=== PATIENT | female | born 2000 | race Caucasian/White ===

== ENCOUNTER 2020-03-20 12:55 | Inpatient (IN) | payer MEDICAID ==
[2020-03-20] MEDS ORDERED: OXYTOCIN DRIP 30,000 MILLIUNITS/500 ML BAG IV ONE ×2 (13:02→13:03)
[2020-03-20] MEDS ORDERED: LIDOCAINE (2%) 20 MG/1 ML VIAL 20 ML MDV INFILTRATI ONE ×2 (13:16→14:20)
[2020-03-20] MEDS ORDERED: fentaNYL 100 MCG/2 ML INJ ONE (13:19)
[2020-03-20] MEDS ORDERED: fentaNYL 100 MCG/2 ML INJ IV ONE (13:27)
[2020-03-20 14:18] LABS: Hematocrit 35.3 % (30.3-42.9); Hemoglobin 11.9 gm/dl (10.1-14.3); Mean Corpuscular HGB Conc 34 % (30-34); Mean Corpuscular Volume 87 fl (79-97); Platelet Count 363 K/mm3 (140-440); Red Blood Count 4.07 M/mm3 (3.65-5.03); Red Cell Distribution Width 15.2 % (13.2-15.2)
[2020-03-20] MEDS ORDERED: ePHEDrine SULFATE 50 MG/1 ML INJ IV PRN (14:20)
[2020-03-20] MEDS ORDERED: TERBUTALINE 1 MG/1 ML INJ SUB-Q PRN (14:20)
[2020-03-20] MEDS ORDERED: WITCH HAZEL/ GLYCERIN PAD TP PRN (14:24)
[2020-03-20] MEDS ORDERED: LANOLIN/ZINC/DIMETHICONE (LANSINOH) 7 GM TP PRN (14:24)
[2020-03-20] MEDS ORDERED: HYDROcodone/ACETAMINOPHEN 5-325 MG TAB PO PRN (14:24)
--- NOTE | 2020-03-20 14:28 | Procedure Note ---
OB Delivery Note - Delivery Date of Delivery: 03/20/20 - Vaginal Delivery presentation: vertex Delivery position: OA Intrapartum events: precipitous labor- <3hr Delivery induction: none Delivery monitor: external FHT, external uterine Route of delivery: Delivery placenta: spontaneous Delivery cord: 3 umbilical vessels Episiotomy: none Delivery laceration: 1st degree Delivery repair: vicryl Anesthesia: local Delivery comments: Precipitous spontaneous vaginal delivery at 13:14 of liveborn female infant weighing 2.997 kg over first degree left labial laceration with apgars of 8/9. of baby was atraumatic. Baby placed skin to skin with mom immediately after delivery. Spontaneous cry and respirations. Baby bulb suctioned and dried with warm blankets. 3 vessel cord double clamped and cut; cord blood obtained. Spontaneous delivery of intact placenta and membranes by betts mechanism. EBL 200 cc. Pitocin to IV fluids after delivery of placenta. Fundus firm and midl ine. First degree left labial laceration repaired with 3-0 vicryl under Lidocaine local. Vaginal sweep negative. Sponge count correct. Mother and baby stable.
--- NOTE | 2020-03-20 14:28 | History and Physical Report ---
History of Present Illness Date of examination: 03/20/20 Date of admission: 03/20/20 12:57 Chief complaint: Contractions. History of present illness: 20 year old presented to L&D in active advanced labor (9 cm dilated and +1 station upon arrival). Patient received care at [facility] and was able to access records via computer. LMP 06/18/2019. EDC 03/24/2020. significant for the following: late presentation for care, noncompliant with care (missed a number of visits), FH small for dates, marijuana use during . labs are as follows: O+, antibody screen negative, rubella immune, varicella nonimmune, RPR nonreactive, hepatitis B surface antigen negative, HIV negative, gonorrhea negative, chlamydia negative, trichomonas negative, GBS negative, 1 hour sugar test 118, hemoglobin electrophoresis AA. Past History Past Medical History: no pertinent history Past Surgical History: other (history of neck surgery) [facility] History: denies: chlamydia, gonorrhea, hepatitis B, hepatitis C, herpes, HIV, syphilis, trichomonas Family/Genetic History: other (asthma) Social history: single, full code, other (used marijuana during ). denies: alcohol abuse - Obstetrical History Expected Date of Delivery: 03/24/20 Actual Gestation: 39 Week(s) 3 Day(s) : 1 Para: 0 Hx # Term Pregnancies: 0 Number of Pregnancies: 0 Spontaneous Abortions: 0 Induced : 0 Number of Living Children: 0 Medications and Allergies Allergies Allergy/AdvReac Type Severity Reaction Status Date / Time No Known Allergies Allergy Unverified 03/20/20 13:22 Active Meds: Active Medications Hydrocodone Bitart/Acetaminophen ([place] 5/325) 2 each PO Q6H PRN PRN Reason: Pain, Moderate (4-6) Oxytocin/Sodium Chloride (Pitocin/Ns 30 Unit/500ml) 30 units in 500 mls @ 2 mls/hr IV TITR CLINT; Protocol Lactated Ringer's (Lactated Ringers) 1,000 mls @ 125 mls/hr IV DIRECT CLINT Oxytocin/Sodium Chloride (Pitocin/Ns 30 Unit/500ml) 30 units in 500 mls @ 40 mls/hr IV TITR CLINT; Protocol Ibuprofen (Ibuprofen) 600 mg PO Q6H CLINT Magnesium Hydroxide (Milk Of Magnesia) 30 ml PO HS PRN PRN Reason: Constipation Multi-Ingredient Ointment (Lansinoh) 1 applic TP PRN PRN PRN Reason: Sore Nipples Sodium Chloride (Sodium Chloride Flush Syringe 10 Ml) 10 ml IV PRN NR Witch Shae/Glycerin (Tucks Pad) 1 each TP PRN PRN PRN Reason: Hemorrhoid/cleansing/soothing Review of Systems All systems: negative (contractions, "baby is coming.") - Vital Signs Vital signs: Vital Signs Temp Resp 98.4 F 18 03/20/20 13:00 03/20/20 13:00 Temp Pulse Resp BP Pulse Ox 98.4 F 95 H 18 122/67 99 03/20/20 13:00 03/20/20 14:26 03/20/20 13:00 03/20/20 14:12 03/20/20 14:26 - Physical Exam Abdomen: Positive: normal appearance, soft. Negative: distention, tenderness, guarding, rigidity Genitourinary (Female): Positive: normal external genitalia, normal perenium. Negative: perineal/vulvar lesions Vagina: Positive: normal moisture Uterus: Positive: enlarged. Negative: tender Anus/Rectum: Positive: normal perianal skin Extremities: Positive: normal - Obstetrical FHR: category 2 Uterine Contraction Monitor Mode: External Cervical Dilatation: 9 Cervical Effacement Percentage: 100 station: +1 Uterine Contraction Pattern: Regular Uterine Contraction Intensity: Moderate Results Result Diagrams: 03/20/20 13:10 Abnormal lab results 03/20/20 Range/Units 13:10 WBC 16.4 H (4.5-11.0) K/mm3 All other labs normal. Assessment and Plan A: at 39 weeks, 3 days gestation. Active advanced labor. GBS negative. P: Admit. Anticipate .
[2020-03-20] MEDS ORDERED: OXYTOCIN DRIP 30 UNITS/500 ML BAG IV SCH ×2 (15:00)
[2020-03-20] MEDS ORDERED: LACTATED RINGERS 1,000 ML IV SCH (15:00)
[2020-03-20] MEDS: IBUPROFEN 600 MG TAB PO SCH (16:05)
[2020-03-20 16:49] LABS: Hematocrit 34.1 % (30.3-42.9); Hemoglobin 11.2 gm/dl (10.1-14.3); Mean Corpuscular HGB Conc 33 % (30-34); Mean Corpuscular Volume 88 fl (79-97); Platelet Count 336 K/mm3 (140-440); Red Blood Count 3.86 M/mm3 (3.65-5.03); Red Cell Distribution Width 15.3 % (13.2-15.2)
[2020-03-20 20:25] LABS: Bacteria,Urine 1+ /HPF (Negative); Bilirubin,Urine NEG (Negative); Blood,Urine LG (Negative); Color,Urine Straw (Yellow); Protein,Urine <15 mg/dL mg/dL (Negative); Urobilinogen,Urine < 2.0 mg/dL (<2.0)
[2020-03-20 20:31] LABS: Amphetamine Screen,Urine PRESUMPTIVE NEGATIVE; Benzodiazepines Screen,Urine PRESUMPTIVE NEGATIVE; Cannabinoid Screen,Urine PRESUMPTIVE NEGATIVE; Cocaine Screen,Urine PRESUMPTIVE NEGATIVE; Methadone Screen,Urine PRESUMPTIVE NEGATIVE; Opiate Screen,Urine PRESUMPTIVE NEGATIVE
[2020-03-20] MEDS ORDERED: MINERAL OIL 30 ML ORAL LIQD PO PRN (22:00)
[2020-03-20] MEDS ORDERED: MAGNESIUM HYDROXIDE (MOM) ORAL LIQD UDC PO PRN (22:00)
[2020-03-21] MEDS: IBUPROFEN 600 MG TAB PO SCH ×2 (02:52→05:24)
[2020-03-21 06:24] LABS: Hematocrit 32.7 % (30.3-42.9); Hemoglobin 10.8 gm/dl (10.1-14.3)
--- NOTE | 2020-03-21 09:20 | Progress Note ---
Assessment and Plan A: S/P Anemia P: D/C home if stable per pt request Cont pnv and Fe f/u 6 wks Subjective - Subjective Date of service: 03/21/20 Principal diagnosis: Patient reports: appetite normal, voiding normally, pain well controlled, ambulating normally : doing well, nursing well Objective - Vital Signs Latest vital signs: Vital Signs Temp Pulse Resp BP BP Pulse Ox 03/21/20 06:24 18 03/21/20 05:24 18 03/21/20 02:52 18 03/21/20 01:01 97.0 F L 80 18 116/57 93 03/20/20 20:47 98.0 F 79 18 113/60 98 03/20/20 17:10 97.8 F 96 H 18 116/76 99 03/20/20 15:31 102 H 98 03/20/20 15:27 95 H 121/69 03/20/20 15:26 109 H 99 03/20/20 15:21 117 H 96 03/20/20 15:17 90 94 03/20/20 15:16 86 94 03/20/20 15:12 90 120/71 03/20/20 15:11 97 H 98 03/20/20 15:06 91 H 98 03/20/20 15:01 89 98 03/20/20 14:57 92 H 121/67 03/20/20 14:56 91 H 98 03/20/20 14:51 89 98 03/20/20 14:46 89 99 03/20/20 14:42 88 120/69 03/20/20 14:41 101 H 99 03/20/20 14:36 104 H 98 03/20/20 14:31 100 H 98 03/20/20 14:27 94 H 127/69 03/20/20 14:26 95 H 99 03/20/20 14:21 100 H 98 03/20/20 14:18 95 H 90 03/20/20 14:16 105 H 98 03/20/20 14:12 92 H 122/67 03/20/20 14:11 94 H 98 03/20/20 14:06 102 H 97 03/20/20 14:01 86 98 03/20/20 13:57 100 H 119/67 03/20/20 13:56 105 H 98 03/20/20 13:51 111 H 99 03/20/20 13:46 101 H 99 03/20/20 13:41 97 H 97 03/20/20 13:36 100 H 98 03/20/20 13:31 104 H 98 03/20/20 13:26 97 H 99 03/20/20 13:24 106 H 90 03/20/20 13:21 99 H 98 03/20/20 13:16 94 H 99 03/20/20 13:11 94 H 100 03/20/20 13:06 80 100 03/20/20 13:01 86 100 03/20/20 13:00 98.4 F 18 Intake and Output 03/20/20 03/21/20 03/21/20 22:59 06:59 14:59 Intake Total 540 300 Output Total 1150 Balance -610 300 Intake: Oral 240 Intake, Free Water 300 300 Output: Urine 1150 Void 1150 Other: Total, Intake Amount 240 Total, Output Amount 600 # Voids Void 1 - Exam Breasts: Present: normal Abdomen: Present: normal appearance, soft, normal bowel sounds Vulva: both: normal Uterus: Present: normal, firm, fundal height below umbilicus Extremities: Present: normal Incision: Present: normal, intact - Labs Labs: Abnormal lab results 03/20/20 03/20/20 03/20/20 Range/Units 13:10 16:10 19:53 WBC 16.4 H 20.3 H (4.5-11.0) K/mm3 RDW 15.3 H (13.2-15.2) % Urine WBC (Auto) 9.0 H (0.0-6.0) /HPF
--- NOTE | 2020-03-21 09:31 | Discharge Summary ---
Providers - Providers Date of Admission: 03/20/20 12:57 Date of discharge: 03/21/20 Attending physician: RENATA POSEY 03/20/20 14:58 Consult to Case Management [CONS] Routine Services Needed at Discharge: First Aid Attendant Notified:: NONE Additional Physician Instructions: Late PNC, use of marijuana during Primary care physician: RENATA POSEY Hospitalization Reason for admission: active labor Delivery: Episiotomy: none Laceration: 1st degree Incision: normal, intact Other procedures: none complications: none Discharge diagnosis: IUP at term delivered baby: female Hospital course: Pt was admitted to [facility] in active labor. She had a and an uncomplicated pp stay. She was d/cd home in stable condition. See H&P,delivery summary, and pp notes. Condition at discharge: Stable Disposition: DC-01 TO HOME OR SELFCARE Plan - Discharge Medications Prescriptions: Ibuprofen [Ibu-200] 600 mg PO Q6HR #60 tablet - Provider Discharge Summary Additional instructions: [] Smoking cessation referral if applicable(refer to patient education folder for contact #) [] Refer to [facility] Booklet Call your doctor immediately for: * Fever > 100.5 * Heavy vaginal bleeding ( >1 pad per hour) * Severe persistent headache * Shortness of breath * Reddened, hot, painful area to leg or breast * Drainage or odor from incision. * Keep incision clean and dry at all times and follow doctor's instructions regarding bathing/showering - Follow up plan Follow up: RENATA POSEY MD [Primary Care Provider] - 6 Weeks
[2020-03-21 14:22] VITALS: BP 125/76
== END 2020-03-21 15:40 | disposition home or self-care (01) | DRG 775 ==
LOC: TRG 12:55 → LD 12:57 → OB 17:30
PROVIDERS: ADMIT Obstetrics & Gynecology; ATTEND Obstetrics & Gynecology
PROC: 10E0XZZ Delivery of Products of Conception, External Approach (ICD-10-PCS; principal; 2020-03-20)
PROC: 0HQ9XZZ Repair Perineum Skin, External Approach (ICD-10-PCS; 2020-03-20)
DX: O62.3 Precipitate labor (principal); O70.0 First degree perineal laceration during delivery; O99.02 Anemia complicating childbirth; Z3A.39 39 weeks gestation of pregnancy; Z37.0 Single live birth; Z82.5 Family history of asthma and other chronic lower respiratory diseases
CPT/HCPCS: 36415; 80307; 81001; 85014; 85018; 85027; 86592; 86850; 86900; 86901; 87086; G0378; A6250; J2590; J3010